=== PATIENT | female | born 1995 | race Caucasian/White ===

== ENCOUNTER 2018-02-07 10:44 | Emergency (ER) | payer MEDICAID, OTHER ==
[~2018-02-07] VITALS: Ht 162.6 cm; Wt 59.0 kg
[~2018-02-07 10:44] MED LIST: ACET500T97; TRAM-350; [UNRECOGNIZED DRUG - CODE]; excedrin
[2018-02-07 11:53] LABS: BASOPHILS % 1.2 % (0.0-2.0); CLARITY URINE CLEAR (CLEAR); COLOR URINE YELLOW (YELLOW); EOSINOPHILS % 2.4 % (0.0-5.0); HEMATOCRIT. 36.8 % (36.0-48.0); HEMOGLOBIN. 12.5 g/dL (12.0-16.0); KETONES URINE NEGATIVE (NEGATIVE); LEUKOCYTE ESTERASE URINE NEGATIVE (NEGATIVE); MEAN CORPUSCULAR HEMOGLOBIN 27.8 pg (28.0-32.0); MEAN CORPUSCULAR VOLUME 81.7 fL (81.0-99.0); MEAN PLATELET VOLUME 8.1 fl (7.4-10.4); MONOCYTES % 10.1 % (2.0-8.0); NEUTROPHILS % 58.3 % (40.0-76.0); NITRITE URINE NEGATIVE (NEGATIVE); OCCULT BLOOD URINE NEGATIVE (NEGATIVE); PH URINE 6.5 (4.5-8.0); PLATELET 360 x1000/uL (130-400); PROTEIN URINE NEGATIVE (NEGATIVE); RED CELL DISTRIBUTION WIDTH 14.2 % (11.6-14.6); SPECIFIC GRAVITY URINE 1.008 (1.005-1.030); UROBILINOGEN URINE 0.2 E.U./dL (0.2-1.0)
[2018-02-07 12:00] LABS: INR 1.1; PARTIAL THROMBOPLASTIN TIME 25.8 sec (23.4-31.0); PROTHROMBIN TIME 10.7 sec (9.1-11.1)
[2018-02-07 12:02] LABS: CHLORIDE 105 mEq/L (98-107)
[2018-02-07 12:24] LABS: *AMPHETAMINES SCREEN URINE NEGATIVE (NEGATIVE); *BARBITURATES SCREEN URINE NEGATIVE (NEGATIVE); *BENZODIAZEPINES SCREEN URINE NEGATIVE (NEGATIVE); *COCAINE SCREEN URINE NEGATIVE (NEGATIVE); METHADONE URINE SCREEN NEGATIVE (NEGATIVE); OPIATES URINE SCREEN NEGATIVE (NEGATIVE)
[2018-02-07 12:25] LABS: CANNABINOID URINE SCREEN NEGATIVE (NEGATIVE); PHENCYCLIDINE URINE SCREEN NEGATIVE (NEGATIVE)
[2018-02-07] MEDS ORDERED: SODIUM CHLORIDE 0.9% 1,000 ML IV ONE (13:45)
[2018-02-07] MEDS ORDERED: ONDANSETRON HCL 4MG/2ML VIAL IV NR (13:45)
[2018-02-07] MEDS ORDERED: PANTOPRAZOLE SODIUM 40 MG/VIAL IV NR (13:45)
[2018-02-07 14:28] VITALS: BP 114/74
[2018-02-07] MEDS ORDERED: FLUCONAZOLE 100MG TABLET PO ONE (14:30)
[2018-02-07] MEDS ORDERED: FLUCONAZOLE 150MG TABLET PO ONE (14:45)
== END 2018-02-07 14:38 | disposition home or self-care (01) ==
LOC: ER 10:44
DX: K29.70 Gastritis, unspecified, without bleeding (principal); E03.9 Hypothyroidism, unspecified; G43.909 Migraine, unspecified, not intractable, without status migrainosus
CPT/HCPCS: 36415; 80053; 80305; 81003; 81025; 83690; 85025; 85610; 85730; 96374; 96375; 99284; C9113; J2405

== ENCOUNTER 2019-07-23 14:26 | Emergency (ER) | payer MEDICAID, OTHER ==
[~2019-07-23] VITALS: Ht 165.1 cm; Wt 59.0 kg
[~2019-07-23 14:26] MED LIST changes: +ACET500T95; -ACET500T97
[2019-07-23] MEDS ORDERED: IBUP-2028 PO (14:35)
[2019-07-23] MEDS ORDERED: KETOROLAC 60MG/2ML VIAL IM STA (20:40)
[2019-07-23] MEDS ORDERED: METHYLPREDNISOLONE SOD SUCC 125 MG/2 ML VIAL IM STA (21:37)
[2019-07-23] MEDS ORDERED: AMOXICILLIN/POTASSIUM CLAVULANATE 875/125MG TAB PO ONE (21:45)
[2019-07-23 22:02] VITALS: BP 108/74
== END 2019-07-23 22:03 | disposition home or self-care (01) ==
LOC: ER 14:26
DX: J03.90 Acute tonsillitis, unspecified (principal); R59.1 Generalized enlarged lymph nodes; H92.01 Otalgia, right ear; Z79.899 Other long term (current) drug therapy
CPT/HCPCS: 87070; 87430; 96372; 99283; J1885; J2930